=== PATIENT | male | born 2005 | race African-American/Black ===

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

== ENCOUNTER 2025-04-07 09:46 | Emergency (ER) | payer BC, MEDICAID ==
[~2025-04-07] VITALS: Ht 165.1 cm; Wt 56.7 kg
[~2025-04-07 09:46] MED LIST changes: +DOXYCYCLINE HY100 MG PO
[2025-04-07 09:50] VITALS: PULSE 94; RESP 17; TEMP 99.1
[2025-04-07 10:16] LABS: STREPTOCOCCUS GRP A ANTIGEN NEGATIVE (NEGATIVE)
[2025-04-07 10:23] LABS: CORONAVIRUS COVID-19 AG NEGATIVE (NEGATIVE)
[2025-04-07 11:20] VITALS: BP 119/75; PULSE 79; RESP 17; O2SAT 99
== END 2025-04-07 11:08 | disposition home or self-care (01) ==
LOC: ER 09:59
DX: J02.9 Acute pharyngitis, unspecified (principal); J30.2 Other seasonal allergic rhinitis; Z11.52 Encounter for screening for COVID-19
CPT/HCPCS: 83518; 87070; 99282